=== PATIENT | male | born 1955 | race African-American/Black ===

== ENCOUNTER 2020-11-02 06:53 | Day surgery (SDC) | payer OTHER ==
[~2020-11-02 06:53] MED LIST: FENTANYL CITRATE INJ/PF 100 MCG/2 ML AMPUL ONE; KETOROLAC TROMETHAMINE 0.45% 4 DROP/0.4 ML DROPERETTE OD PRN; MIDAZOLAM 2 MG/2 ML INJ ONE
--- OUTSIDE RECORDS SUMMARY | 2020-11-02 06:57 | XMS REPORT ---
:1955 Author Organization [facility] [place] [facility] [place] [address] [place] [address] Care Team Providers Name Role Phone FELTON LEBLANC Primary Care Physician Unavailable JALEN DRUMMOND Attending Clinician Unavailable Allergies, Adverse Reactions, Alerts This patient has no known allergies or adverse reactions. Medications This patient has no known medications. Problems This patient has no known problems. Procedures This patient has no known procedures. Results This patient has no known results. Encounters Start End Encounter Admission Attending Care Care Encounter Date/Time Date/Time Type Type Clinicians Facility Department ID 2017-04-24 2017-04-24 G [facility] [id number] 10:09:21 23:59:00 _[id number] 2017-04-24 2017-04-24 Outpatient [facility] [id number] 09:57:57 12:16:26 _[id number] 2017-04-24 2017-04-24 G [facility] [id number] 10:04:00 10:26:00 _[id number] 2017-04-24 2017-04-24 G [facility] [id number] 00:00:00 00:00:00 _[id number] 2016-05-24 2016-05-24 G EL [facility], [facility] [id number] 00:00:00 23:59:00 2016-03-01 2016-03-01 G EL [facility], [facility] [id number] 15:29:06 23:59:00 DANIEL _[id number] 2016-03-01 2016-03-01 G EL [facility], [facility] [id number] 00:00:00 15:47:00 2016-03-01 2016-03-01 G EL [facility], [facility] [id number] 15:29:00 15:29:00 DANIEL _[id number] 2015-11-02 2015-11-02 Colleen DRUMMOND[facility] [id number] 13:40:56 23:59:00 DANIEL _[id number] Payers Payer Name Policy Type Policy Number Effective Date Expiration D ate MEDICAID [place] [id number] 2014 00:00:00 ACCESS Social History This patient has no known social history. Vital Signs This patient has no known vital signs.
[2020-11-02] MEDS: TETRACAINE HCL 0.5% OPH SOLN 4 ML OD PRN ×3 (07:35→08:09)
[2020-11-02] MEDS: TROPICAMIDE 1% OPH SOLN 15 ML OD PRN ×3 (07:35→07:57)
[2020-11-02] MEDS: BESIFLOXACIN HCL 0.6% OPH SUSP 5 ML BOTTLE OD PRN ×4 (07:35→08:29)
[2020-11-02] MEDS: CYCLOPENTOLATE 0.2%/PHENYLEPHRINE 1% OPH SOLN 2 ML OD PRN ×3 (07:35→07:57)
[2020-11-02] MEDS: CHONDR SU A NA/HYALUR INTRAOC KIT (SURGICARE) ONE ×2 (08:18)
[2020-11-02] MEDS: EPINEPHRINE INJ/PF 1 MG/1 ML AMPULE ONE ×2 (08:18)
[2020-11-02] MEDS: LIDOCAINE 1%/PHENYLEPHRINE 1.5% 1 ML VIAL ONE ×2 (08:18)
[2020-11-02] MEDS: PREDNISOLONE ACETATE 1% OPH SUSP 5 ML OD PRN ×2 (08:21→08:29)
[2020-11-02] MEDS: DORZOLAMIDE HCL 2%/TIMOLOL MALEAT 0.5% OPH SOLN 10 ML OD PRN ×2 (08:21→08:29)
--- NOTE | 2020-11-03 11:38 | Operative Report ---
Operative Report-[facility] Operative Report: DATE OF SURGERY: 11/02/2020 PREOPERATIVE DIAGNOSIS: Cataract, right eye POSTOPERATIVE DIAGNOSIS: Cataract, right eye OPERATION: Cataract extraction with insertion of an IOL of the right eye. Intraocular Lens Model: [27.0 Z CB 00] Patient underwent surgery for difficulty seeing road signs SURGEON: Dimitris Hong MD ANESTHESIA: Topical PROCEDURE: After obtaining appropriate consent, the patient's right eye was prepped and draped in a sterile fashion as well as the surgeon in the sterile manner and cataract surgery was started. First a paracentesis blade was used to make a side-port incision. Viscoelastic was used to inflate the anterior chamber. Next a 2.4 mm incision was made with a 2.4 mm blade, clear corneal temporarily. A continuous capsulorrhexis was made using a cystotome and Utrata forceps. Following this hydrodissection was carried out to make the kymberly fully loose and mobile and it was rotated. Following this, a divide and conquer technique was used to phacoemulsify the kymberly. The remaining cortex was removed with an irrigation/aspiration. Provisc was instilled into the capsular bag to inflate the bag. The intraocular lens was placed. The remaining viscoelastic material was removed with irrigation/aspiration. Following this, the incision was found to be watertight. Besivance and Cosopt was instilled into the eye and a protective shield was placed over the eye. The patient was reurned to the postoperative recovery in a stable condition.
== END 2020-11-02 09:07 | disposition home or self-care (01) ==
LOC: SC 06:53
PROVIDERS: ATTEND Internal Medicine
DX: H25.89 Other age-related cataract (principal); H04.123 Dry eye syndrome of bilateral lacrimal glands; H52.4 Presbyopia; I10 Essential (primary) hypertension; Z87.891 Personal history of nicotine dependence
CPT/HCPCS: 66984; V2632; J2250; J3490 ×2; J0171; J3010; 142